=== PATIENT | male | born 1960 | race Caucasian/White ===

== ENCOUNTER 2023-08-22 02:53 | Day surgery (SDC) | payer OTHER, SELFPAY ==
[2023-08-10 15:19] VITALS: BMI 27.3
[2023-08-22 10:28] VITALS: BP 152/86; PULSE 79; RESP 17; TEMP 36.6; O2SAT 95
[2023-08-22] MEDS: LACTATED RINGERS 1,000 ML 150 ML IV CONT (10:40)
--- NOTE | 2023-08-22 11:16 | PM.HPGS ---
History of Present Illness History of Present Illness Consent: Risks, benefits, and alternatives have been discussed and questions answered. Patient agrees to proceed with procedure. Chief complaint: Neoplasm screening Narrative: Adi Lee is a 63 year old male here for first screening colonoscopy Review of Systems Review of Systems: All systems reviewed & are unremarkable except as noted in HPI and below PMFSH Past Medical History Medical History (Updated 08/22/23 @ 11:17 by Nir Green MD) Colon cancer screening Social History Social History Smoking status: Never smoker Alcohol intake: current Drinks per week: 21 Alcohol use details: 3 BEERS/NIGHT Substance use: never Substance use type: does not use Living arrangements: with family Spiritual care concerns: No Meds Home Medications and Allergies Home Medications Medication Instructions Recorded Confirmed Type levetiracetam 500 mg tablet 500 mg PO BID 08/10/23 08/10/23 History Allergies Allergy/AdvReac Type Severity Reaction Status Date / Time No Known Allergies Allergy Verified 08/22/23 10:27 Vital Signs Vital Signs - 24 hr 08/22/23 10:28 Temperature 97.8 F Pulse Rate 79 Respiratory Rate 17 Blood Pressure 152/86 H Pulse Oximetry 95 Oxygen Delivery Room Air Exam Const: General: comfortable and no acute distress HENMT: Face/Nose/Sinus: Normal nares present Eyes: General: appearance normal, both eyes and all related structures Neck: Neck: no JVD Resp: Auscultation: clear to auscultation bilaterally Cardio: Rate: regular rate Rhythm: regular rhythm GI: Inspection: non-distended GI Palp: Yes Soft to palpation Skin: General skin exam: normal color Neuro: General: gait normal Speech: normal speech Extrem: General: normal to inspection Psych: Mental Status: mental status grossly normal Assessment and Plan Assessment and plan (1) Colon cancer screening: Code(s): Z12.11 - Encounter for screening for malignant neoplasm of colon Status: Acute Assessment and Plan: colonoscopy
[2023-08-22 11:32] VITALS: BP 115/65; PULSE 54; RESP 16; O2SAT 98
[2023-08-22 11:42] VITALS: BP 118/75; PULSE 52; RESP 18; O2SAT 100
[2023-08-22 11:52] VITALS: BP 141/85; PULSE 58; RESP 18; O2SAT 98
--- NOTE | 2023-08-23 14:52 | WPDANESEPPF ---
Anes - Initial Pre Proc Eval Procedure: Operation Date: 08/22/23 11:30 Proposed Procedures p Screening Colonoscopy - Nir Green MD Date/Time: 08/23/23 14:52 Surgeon: Nir Green MD Pre Op Diagnosis: Neoplasm screening Patient Data Age: 63 Gender: M Height: 1.75 m Weight: 69.2 kg Last Vital Signs Temp 97.8 F 08/22/23 10:28 Pulse 58 L 08/22/23 11:52 Resp 18 08/22/23 11:52 BP 141/85 H 08/22/23 11:52 Pulse Ox 98 08/22/23 11:52 O2 Del Method Room Air 08/22/23 11:52 Allergies Allergy/AdvReac Type Severity Reaction Status Date / Time No Known Allergies Allergy Verified 08/22/23 10:27 Home Medications Medication Instructions Recorded Confirmed Type levetiracetam 500 mg tablet 500 mg PO BID 08/10/23 08/10/23 History Patient hx anesthesia problems: none Family hx anesthesia problems: none Results Review: All pre-operative results and documents have been reviewed as part of the pre-operative evaluation. [facility] Past Medical History Medical History (Updated 08/22/23 @ 11:17 by Nir Green MD) Colon cancer screening Social History Social History Smoking status: Never smoker Alcohol intake: current Drinks per week: 21 Alcohol use details: 3 BEERS/NIGHT Substance use: never Substance use type: does not use Living arrangements: with family Spiritual care concerns: No Anes - Eval Final PreProcedure Day of Procedure 08/23/23 14:52 Patient weight: normal Heart: regular rate and rhythm Lungs: clear to auscultation Airway: Mallampati scale class II Neurological: alert and oriented Last oral intake: >/= 8 hours ASA classification: III Emergent: no Anesthetic plan: proceed Anesthesia type and monitoring: general GIVS and standard monitoring Results Review: All pre-operative results and documents have been reviewed as part of the pre-operative evaluation. Informed Consent: The patient's anesthetic plan and its attendant risks and benefits were discussed with the patient/family/POA. Questions were solicited and answers provided to the satisfaction of the patient/family/POA.
== END 2023-08-22 11:56 | disposition home or self-care (01) ==
PROVIDERS: Visit Provider Internal Medicine Gastroenterology
PROC: 0DJD8ZZ Inspection of Lower Intestinal Tract, Via Natural or Artificial Opening Endoscopic (ICD-10-PCS; CPT 45378; principal; 2023-08-22 11:30)
DX: Z12.11 Encounter for screening for malignant neoplasm of colon (principal); K64.8 Other hemorrhoids
CPT/HCPCS: 45378; J2704; J7120